=== PATIENT | female | born 1955 | race Hispanic/Latino ===

== ENCOUNTER → 2018-04-28 | Outpatient (CLI) | payer OTHER ==
--- NOTE | 2018-05-01 08:32 | Diagnostic Imaging Report ---
#[id number] - MGSCRBIL #BILATERAL DIGITAL SCREENING MAMMOGRAM WITH CAD: 04/28/2018 CLINICAL: Routine screening. Comparison is made to exams dated: 03/08/2017 mammogram and 03/01/2016 mammogram - [facility]. Current study contains 5 films. There are scattered fibroglandular elements in both breasts. Current study was also evaluated with a Computer Aided Detection (CAD) system. There are benign calcifications in both breasts. There also are benign lymph nodes in both breasts. Additionally there is a benign intramammary node in the right breast. No significant masses, calcifications, or other findings are seen in either breast. There has been no significant interval change. IMPRESSION: BENIGN There is no mammographic evidence of malignancy. A 1 year screening mammogram is recommended. The patient will be notified by letter of the results. Ralph sheriff/meeta:04/28/2018 16:17:30 Acrobatic Dancer: Kimberlyn MORRELL(Bud)(M), [facility] letter sent: Compared to Prior B9 Mammogram BI-RADS: 2 Benign
== END ==
LOC: MAMMO 09:06
PROVIDERS: ATTEND Internal Medicine
DX: Z12.31 Encounter for screening mammogram for malignant neoplasm of breast (principal)
CPT/HCPCS: 77067

== ENCOUNTER → 2018-12-28 | Outpatient (CLI) | payer OTHER ==
--- NOTE | 2018-12-28 09:02 | Diagnostic Imaging Report ---
EXAM: US ABDOMEN COMPLETE INDICATION: Acute gastritis, abdominal pain COMPARISON: None TECHNIQUE: Transverse and longitudinal law scale and color doppler sonographic images of the abdomen were obtained. FINDINGS: LIVER 13.8 cm in the right midclavicular line. Increased echogenicity of the liver with normal contour, no masses. SPLEEN 9.0 cm in maximum diameter. Normal echogenicity, no masses. GALLBLADDER No gallbladder wall thickening, distension, stone, or pericholecystic fluid. Small amount of gallbladder sludge. Negative reported sonographic Calero's sign. BILE DUCTS No intra nor extra-hepatic biliary dilation. Common bile duct measures 0.3 cm PANCREAS: Visualized portions are normal. RIGHT KIDNEY: 10.0 cm Echogenicity: Normal Collecting System: No hydronephrosis Stones: None Cyst/Mass: None LEFT KIDNEY: 10.4 cm Echogenicity: Normal Collecting System: No hydronephrosis Stones: None Cyst/Mass: None VESSELS: Aorta: Visualized portions are within normal size limits Inferior Vena Cava: Visualized portions are normal Main Portal Vein: 0.9 cm, normal size with hepatopetal flow. FREE FLUID: None IMPRESSION: Hepatic steatosis. Gallbladder sludge without evidence of cholelithiasis or cholecystitis. Signed by: Dr. Gaurav Mauricio MD on 12/28/2018 8:59 AM
== END ==
LOC: US 08:01
PROVIDERS: ATTEND Internal Medicine
DX: R10.10 Upper abdominal pain, unspecified (principal); K29.00 Acute gastritis without bleeding
CPT/HCPCS: 76700

== ENCOUNTER → 2019-04-11 | Outpatient (CLI) | payer OTHER ==
--- NOTE | 2019-04-18 08:43 | Diagnostic Imaging Report ---
#[id number] - MGSCRBIL #BILATERAL DIGITAL SCREENING MAMMOGRAM WITH CAD: 04/11/2019 CLINICAL: Routine screening. Comparison is made to exams dated: 04/28/2018 mammogram and 03/08/2017 mammogram - [facility]. There are scattered fibroglandular elements in both breasts. Current study was also evaluated with a Computer Aided Detection (CAD) system. There are benign calcifications in both breasts. There also are benign lymph nodes in both breasts. Additionally there is a benign intramammary node in the right breast. No significant masses, calcifications, or other findings are seen in either breast. There has been no significant interval change. IMPRESSION: BENIGN There is no mammographic evidence of malignancy. A 1 year screening mammogram is recommended. The patient will be notified by letter of the results. NACHO zepeda/meeta:04/16/2019 10:41:50 Systems Requirements Planner: Kimberlyn MORRELL(Bud)([place]), [facility] letter sent: Normal Exam Mammogram BI-RADS: 2 Benign
== END ==
LOC: MAMMO 09:20
PROVIDERS: ATTEND Internal Medicine
DX: Z12.31 Encounter for screening mammogram for malignant neoplasm of breast (principal)
CPT/HCPCS: 77067

== ENCOUNTER → 2021-04-07 | Outpatient (CLI) | payer OTHER | LOC: MAMMO 10:20 | PROVIDERS: ATTEND Internal Medicine | DX: Z12.31 Encounter for screening mammogram for malignant neoplasm of breast (principal) | CPT/HCPCS: 77067 ==

== ENCOUNTER → 2022-10-14 | Outpatient (CLI) | payer MEDICARE | LOC: MAMMO 13:36 | PROVIDERS: ATTEND Internal Medicine | DX: Z12.31 Encounter for screening mammogram for malignant neoplasm of breast (principal) | CPT/HCPCS: 77067 ==

== ENCOUNTER → 2025-03-13 | Outpatient (REF) | payer MEDICARE | LOC: MAMMO 08:32 | PROVIDERS: ATTEND Internal Medicine | DX: Z12.31 Encounter for screening mammogram for malignant neoplasm of breast (principal); M85.88 Other specified disorders of bone density and structure, other site | CPT/HCPCS: 77067; 77080 ==